=== PATIENT | male | born 1975 | race African-American/Black ===

== ENCOUNTER 2017-04-10 15:56 | Emergency (ER) | payer MEDICAID, OTHER ==
[~2017-04-10] VITALS: Ht 177.8 cm; Wt 72.0 kg
[2017-04-10 15:58] VITALS: BP 111/78
== END 2017-04-10 21:10 | disposition left against medical advice (07) ==
LOC: ER 15:57
DX: F10.129 Alcohol abuse with intoxication, unspecified (principal); Z53.21 Procedure and treatment not carried out due to patient leaving prior to being seen by health care provider